=== PATIENT | male | born 1960 | race Caucasian/White ===

== ENCOUNTER 2022-03-01 23:25 | Emergency (ER) | payer SELFPAY ==
[~2022-03-01] VITALS: Ht 167.6 cm; Wt 81.6 kg
--- NOTE | 2022-03-01 23:25 | NUR ---
PT BIB [facility], PREBOOK. TAKEN TO CHAIR
[2022-03-01 23:31] VITALS: BP 144/79
--- NOTE | 2022-03-02 00:16 | NUR ---
Dr. Castellano examining patient.
--- NOTE | 2022-03-02 00:38 | NUR ---
PT TAKEN TO RADIOLOGY
--- NOTE | 2022-03-02 00:54 | NUR ---
PT RETURN FROM RADIOLOGY
--- NOTE | 2022-03-02 02:04 | NUR ---
pt eating a sandwhich
[2022-03-02 03:13] VITALS: BP 146/91
--- NOTE | 2022-03-02 03:13 | NUR ---
Patient does not wish to proceed with medical care recommended by LENI RIVAS. Patient given information related to possible complications, up to and including , which could occur as a result of leaving hospital at this time. Patient verbalizes understanding of risks involved leaving against medical advice. Patient has signed AMA form.
== END 2022-03-02 03:13 | disposition left against medical advice (07) ==
LOC: MED 23:25
DX: S16.1XXA Strain of muscle, fascia and tendon at neck level, initial encounter (principal); S09.90XA Unspecified injury of head, initial encounter; V89.2XXA Person injured in unspecified motor-vehicle accident, traffic, initial encounter; Y93.89 Activity, other specified; Y92.89 Other specified places as the place of occurrence of the external cause; Y99.8 Other external cause status
CPT/HCPCS: 70450; 72050; 99284